=== PATIENT | male | born 1960 | race Caucasian/White ===

== ENCOUNTER 2024-05-27 03:19 | Observation (INO) | payer OTHER, SELFPAY ==
[2024-05-27] VITALS (61 sets, daily range): BP systolic 70–132; BP diastolic 43–71; PULSE 54–69; RESP 9–29; TEMP 35.9–37.1; O2SAT 98–100; BMI 24.4
--- NOTE | 2024-05-27 03:21 | DI.RAD.S_ITS ---
PROCEDURE: XR CHEST 1V INDICATIONS: Bradycardia and lightheadedness TECHNIQUE: One view of the chest was acquired. COMPARISON: None. FINDINGS: Surgical changes and devices: Prosthetic valve. Lungs and pleura: Lungs are clear. No pleural effusions or pneumothorax. Mediastinum: Mediastinal contours appear normal. Heart size is normal. Bones and chest wall: No suspicious bony lesions. Overlying soft tissues appear unremarkable. IMPRESSION: No acute cardiopulmonary abnormality is seen. Agree with preliminary report. Dictated by: Carlos Evans M.D. on 05/27/2024 at 8:35 Approved by: Carlos Evans M.D. on 05/27/2024 at 8:37
--- NOTE | 2024-05-27 03:22 | DI.CT.S_ITS ---
PROCEDURE: CT HEAD/BRAIN WO CON INDICATIONS: Syncope with head injury TECHNIQUE: Noncontrast 4.5 mm thick angled axial sections acquired from the foramen magnum to the vertex, with coronal and sagittal reformats. For radiation dose reduction, the following was used: automated exposure control, adjustment of mA and/or kV according to patient size. COMPARISON: None. FINDINGS: Image quality: Diagnostic. CSF spaces: Basal cisterns are patent. No extra-axial fluid collections. The ventricles are symmetric in size and shape. Brain: No intracranial bleeds or masses. There is cerebral volume loss for age, with resultant ventricular and sulcal prominence. There are periventricular and deep white matter chronic small vessel ischemic changes. There is intracranial internal carotid artery atherosclerosis. Skull and face: Calvarium and visualized facial bones appear intact, without suspicious lesions. Sinuses: Visualized sinuses and mastoids are clear. IMPRESSION: No evidence acute intracranial process. Comment: Final report is concordant with preliminary interpretation provided by [facility]. Dictated by: Oscar Garibay M.D. on 05/27/2024 at 7:11 Approved by: Oscar Garibay M.D. on 05/27/2024 at 7:11
--- NOTE | 2024-05-27 03:23 | ED.GENADULT ---
HPI - General Adult General Chief complaint: Syncope Stated complaint: syncope Time Seen by Provider: 05/27/24 03:20 Source: patient and EMS Mode of arrival: EMS Limitations: no limitations History of Present Illness HPI narrative: Patient is a 64-year-old male. Several years ago had an aortic valve replacement. Is not on anticoagulation. He was on hydrochlorothiazide and losartan for high blood pressure. He also takes 240 mg of verapamil on a daily basis for cluster headaches. He has been on these medications for many years. He states the verapamil was really the only thing it helps his headaches. He did drink alcohol yesterday/last evening. He got up in the middle of the night to go use the restroom and had what appeared to be a syncopal episode. He did hit his head. Potentially a brief loss of consciousness. Has a contusion to his forehead. Reports no other injuries from the event to include neck pain arm pain hip pain or leg pain. Prior to the syncopal event did not have palpitations, shortness of breath, chest pain, headache. Patient's contacted EMS. Upon their arrival they found the patient to be bradycardic into the 50s and occasionally down into the 30s. Found him to be hypotensive with a systolic blood pressure in the 50s and 60s. He received fluids prior to arrival. This did improve his blood pressure somewhat. Patient has not been altered per EMS care. Related Data Home Medications Medication Instructions Recorded Confirmed aspirin 81 mg tablet 81 mg PO DAILY 05/27/24 05/27/24 cholecalciferol (vitamin D3) 100 100 mcg PO DAILY 05/27/24 05/27/24 mcg (4,000 unit) tablet gabapentin 300 mg capsule 300 mg PO BEDTIME 05/27/24 05/27/24 hydrochlorothiazide 12.5 mg capsule 12.5 mg PO DAILY 05/27/24 05/27/24 losartan 50 mg tablet 50 mg PO BID 05/27/24 05/27/24 verapamil 240 mg 24 hr 240 mg PO DAILY 05/27/24 05/27/24 capsule,extended release Allergies Allergy/AdvReac Type Severity Reaction Status Date / Time No Known Drug Allergies Allergy Verified 05/27/24 03:30 Review of Systems Review of Systems ROS Unobtainable: All systems reviewed & are unremarkable except as noted in HPI and below Patient History Social History Smoking Status: Never smoker Exam Initial Vital Signs Initial Vital Signs: Vital Signs Blood Pressure 70/43 L 05/27/24 03:21 Const General: cooperative, comfortable and No ill appearing HENMT Head: abrasion (Middle of forehead) Face and sinus: normal facial exam Mouth: oral mucosae normal Chest Chest: No crepitus and No tenderness Resp Effort & Inspection: normal respiratory effort Auscultation: clear to auscultation bilaterally Cardio Rate: bradycardic Rhythm: regular rhythm GI Inspection: normal to inspection and non-distended Palpation: soft and No tender Back/Spine/Pelvis Cervical Spine: No cervical spinal tenderness Skin Other: Abrasion to center of forehead Neuro General: patient alert, patient awake, patient oriented x3 and moves all extremities Extrem General: normal to inspection and capillary refill normal Course Orders Ordered: ED Orders 05/27/24 03:21 XR chest 1V Stat EKG-12 Lead Stat 05/27/24 03:22 CT head/brain wo con Stat 05/27/24 03:34 Complete Blood Count AUTO DIFF Stat Comprehensive Metabolic Panel Stat Ethanol (ETOH) Stat Lipase Stat Magnesium Stat PTT Partial Thromboplastin Thomas Stat Prothrombin Time INR Stat Troponin & CK Cardiac Panel Stat Sodium Chloride (Normal Saline 0.9%) 1,000 mls @ 125 mls/hr IV CONT ADAMA Last Admin: 05/27/24 04:21 Dose: 125 mls/hr Documented By: GANGA Discontinued Medications Atropine Sulfate (Atropine 1 Mg/10 Ml Syringe) 0.5 mg IV NOW ONE Stop: 05/27/24 03:31 Last Admin: 05/27/24 03:34 Dose: 0.5 mg Documented By: GANGA Sodium Chloride (Normal Saline 0.9%) 1,000 mls @ 1,000 mls/hr IV BOLUS ONE Stop: 05/27/24 04:27 Last Infusion: 05/27/24 04:21 Dose: Infused Documented By: Admin: 05/27/24 03:37 Dose: 1,000 mls/hr Documented By: GANGA Vital Signs Vital signs: Vital Signs - 8 hr 05/27/24 03:21 05/27/24 03:23 05/27/24 03:31 Temperature 96.6 F L Pulse Rate 54 L Respiratory Rate 16 Blood Pressure 70/43 L 70/43 L 74/48 L Pulse Oximetry 100 Oxygen Delivery Method Room Air 05/27/24 03:35 05/27/24 03:39 05/27/24 03:40 Temperature Pulse Rate Respiratory Rate Blood Pressure 70/45 L 73/49 L 74/49 L Pulse Oximetry Oxygen Delivery Method 05/27/24 03:45 05/27/24 03:47 05/27/24 03:47 Temperature Pulse Rate 66 Respiratory Rate 9 L Blood Pressure 75/48 L 78/49 L Pulse Oximetry Oxygen Delivery Method 05/27/24 03:50 05/27/24 03:50 05/27/24 03:55 Temperature Pulse Rate 64 Respiratory Rate 18 Blood Pressure 80/50 L 77/49 L Pulse Oximetry 100 Oxygen Delivery Method 05/27/24 03:55 05/27/24 03:59 05/27/24 04:00 Temperature Pulse Rate 61 60 Respiratory Rate 14 21 Blood Pressure 79/50 L Pulse Oximetry 100 99 Oxygen Delivery Method Room Air 05/27/24 04:00 05/27/24 04:05 05/27/24 04:05 Temperature Pulse Rate 60 59 L Respiratory Rate 13 18 Blood Pressure 82/51 L Pulse Oximetry 100 99 Oxygen Delivery Method Room Air 05/27/24 04:10 05/27/24 04:10 05/27/24 04:15 Temperature Pulse Rate 63 Respiratory Rate 11 L Blood Pressure 84/50 L 91/50 L Pulse Oximetry 98 Oxygen Delivery Method 05/27/24 04:15 05/27/24 04:20 05/27/24 04:20 Temperature Pulse Rate 63 60 Respiratory Rate 16 17 Blood Pressure 84/53 L Pulse Oximetry 100 99 Oxygen Delivery Method 05/27/24 04:30 05/27/24 04:30 05/27/24 04:40 Temperature Pulse Rate 58 L Respiratory Rate 16 Blood Pressure 82/50 L 80/49 L Pulse Oximetry 98 Oxygen Delivery Method 05/27/24 04:40 05/27/24 04:50 05/27/24 04:50 Temperature Pulse Rate 61 60 Respiratory Rate 10 L 10 L Blood Pressure 81/49 L Pulse Oximetry 100 99 Oxygen Delivery Method Medical Decision Making Lab Data Lab results reviewed: Yes I reviewed the patient's lab results. 05/27/24 03:34 05/27/24 03:34 Labs: Lab Results 08/23/24 Range/Units 03:34 WBC 7.5 (4.5-11.0) X10^3/uL RBC 3.93 L (4.5-5.9) X10^6/uL Hgb 13.2 L (13.5-17.5) g/dL Hct 38.8 L (41-53) % MCV 98.8 (80-100) fL MCH 33.6 (26-34) PG MCHC 34.0 (30-36) % RDW 13.0 (11.6-14.8) % Plt Count 215 (150-400) X10^3/uL Neut % (Auto) 54.6 (50-75) % Lymph % (Auto) 33.1 (25-40) % Pender % (Auto) 9.4 (3-14) % Eos % (Auto) 2.3 (2-4) % Baso % (Auto) 0.6 (0-2) % Neut # (Auto) 4100 (7633-2687) /uL Lymph # (Auto) 2500 (9292-5695) /uL Pender # (Auto) 700 (0-900) /uL Eos # (Auto) 200 (0-450) /uL Baso # (Auto) 0 (0-100) /uL PT 11.5 (9.4-12.5) SECONDS INR 1.0 (0.9-1.3) APTT 28 (25.1-36.5) SECONDS Sodium 141 (137-145) mmol/L Potassium 3.8 (3.4-5.1) mmol/L Chloride 111 H (98-107) mmol/L Carbon Dioxide 19 L (22-32) mmol/L BUN 20 (9-20) mg/dL Creatinine 1.35 H (0.66-1.25) mg/dL Estimated GFR 58 L (>60) mL/min BUN/Creatinine Ratio 14.8 (6-22) Glucose 97 (80-110) mg/dL Calcium 8.3 L (8.4-10.2) mg/dL Magnesium 1.9 (1.6-2.3) mg/dL Total Bilirubin 0.6 (0.2-1.3) mg/dL AST 37 (17-59) IU/L ALT 23 (<50) IU/L Alkaline Phosphatase 58 (38-126) U/L Total Creatine Kinase 56 (55-170) U/L Troponin I < 0.012 (0.01-0.034) ng/mL Total Protein 5.8 L (6.3-8.2) g/dL Albumin 3.4 L (3.5-5.0) g/dL Globulin 2.4 (1.7-4.1) g/dL Albumin/Globulin Ratio 1.4 (1.0-2.8) Lipase 115 (23-300) U/L Ethyl Alcohol 34 H ( - 10) mg/dL Point of Care Testing Glucose POC 104 Point of care testing: Point of Care Testing Glucose POC 104 Imaging Data Chest x-ray: Radiologist's Impression: No acute cardiopulmonary abnormality is identified CT scan - head: Radiologist's Impression: No acute intracranial abnormality ECG Data Attestation: I personally reviewed and interpreted this ECG as follows: Interpretation: No prior EKG available Sinus rhythm Ventricular rate of 55 First-degree AV block [place] interval of 312 milliseconds Left axis deviation Left bundle-branch block MDM Narrative Medical decision making narrative: This is the 1st time the patient has been to this emergency department. He arrives alert and oriented however was bradycardic and hypotensive. His blood pressure does seem to be improving by fluids from EMS. He was given 0.5 mg of atropine. This did improve his heart rate into the mid 60s which is what the patient states is his baseline. His blood pressure continue to improve with this and with fluids and now has a systolic blood pressure in the mid upper 80s. Mean arterial pressure is in the low to mid 60s. Patient has a left bundle-branch block on his EKG. He states this is not new. His head CT is unremarkable. Cervical spine cleared by nexus criteria. Reports no extremity injuries on the exam. No gross deformities of his extremities. Chest x-ray is unremarkable. Electrolytes/blood counts are unremarkable. I did discuss the case with Dr. Marion on-call for Cardiology. We went over the patient's medications in his presentation. Cardiology does not feel that the patient needs emergent transfer for pacemaker placement. There was concern that potentially the patient had a syncopal episode given the amount of verapamil that he was taking that his heart rate has not had a chance to respond. Recommended admission to the hospital for observation off of verapamil. Recommended echocardiogram. I did discuss the case with Dr. Haro hospitalist on-call who will admit. Discussed the need for admission with the patient. He expressed understanding and agreement with plan. Critical Care Time Critical Care Time Critical Care Time: Yes Total Critical Care Time: 40 Attestation: The high probability of a clinically significant, sudden or life threatening deterioration of the [cardiovascular] system(s) required my full and direct attention, intervention and personal management. The aggregate critical care time was [40] minutes. This time is in addition to time spent performing reported procedures but includes the following: [x] Data Review and interpretation [x] Patient assessment and monitoring of vital signs [x] Documentation [x] Medication orders and management Discharge Plan Departure Patient Disposition: Admitted as Observation Clinical Impression: Syncope, Bradycardia, Hypotension, Forehead contusion Admit Date/Time: 05/27/24 04:50 Admit Provider: Henry Haro
--- NOTE | 2024-05-27 03:24 | EKG_ITS ---
[address] [address] [address], [place] [address] Test Date: 2024-05-27 Pat Name: Shorty Spicer Department: Room: Gender: Male [employer] Hel[employer]: : 1960 Requested By: Order Number: [id number] Reading MD: Indio Molina Measurements Intervals Christopher Rate: 55 P: -45 LA: 312 QRS: -37 QRSD: 136 T: 87 QT: 546 QTc: 522 Interpretive Statements Unusual P axis, possible ectopic atrial bradycardia Left axis deviation Left bundle branch block Electronically Signed On 05-30-2024 15:17:43 PDT by Indio Molina
[2024-05-27] MEDS: ATROPINE 1 MG/10 ML SYRINGE 0.5 MG IV (03:34)
[2024-05-27] MEDS: SODIUM CHLORIDE 0.9% 1,000 ML 1000 ML IV (03:37)
[2024-05-27 03:45] LABS: Add Manual Diff / Slide Review NO; Basophils Absolute Auto 0 /uL (0-100); Basophils Percent Auto 0.6 % (0-2); Eosinophils Absolute Auto 200 /uL (0-450); Eosinophils Percent Auto 2.3 % (2-4); Hematocrit 38.8 % (41-53); Hemoglobin 13.2 g/dL (13.5-17.5); Lymphocytes Absolute Auto 2500 /uL (1100-4500); Lymphocytes Percent Auto 33.1 % (25-40); Mean Corpuscular Hemoglobin 33.6 PG (26-34); Mean Corpuscular Volume 98.8 fL (80-100); Monocytes Absolute Auto 700 /uL (0-900); Monocytes Percent Auto 9.4 % (3-14); Neutrophils Absolute Auto 4100 /uL (1500-7000); Neutrophils Percent Auto 54.6 % (50-75); Platelet Count 215 X10^3/uL (150-400); Red Blood Cell Count 3.93 X10^6/uL (4.5-5.9); White Blood Cell Count 7.5 X10^3/uL (4.5-11.0)
[2024-05-27 03:47] LABS: Prothrombin Time 11.5 SECONDS (9.4-12.5)
[2024-05-27 03:50] LABS: PTT Partial Thromboplastin Tim 28 SECONDS (25.1-36.5)
[2024-05-27 03:53] LABS: Alanine Aminotransferase 23 IU/L (<50); Albumin 3.4 g/dL (3.5-5.0); Albumin Globulin Ratio 1.4 (1.0-2.8); Alkaline Phosphatase 58 U/L (38-126); Aspartate Aminotransferase 37 IU/L (17-59); BUN Creatinine Ratio 14.8 (6-22); Bilirubin Total 0.6 mg/dL (0.2-1.3); Blood Urea Nitrogen 20 mg/dL (9-20); Calcium 8.3 mg/dL (8.4-10.2); Carbon Dioxide 19 mmol/L (22-32); Chloride 111 mmol/L (98-107); Creatine Kinase 56 U/L (55-170); Estimated Glomerular Filt Rate 58 mL/min (>60); Ethanol (ETOH) 34 mg/dL; Globulin 2.4 g/dL (1.7-4.1); Glucose 97 mg/dL (80-110); Lipase 115 U/L (23-300); Magnesium 1.9 mg/dL (1.6-2.3); Potassium 3.8 mmol/L (3.4-5.1); Sodium 141 mmol/L (137-145); Total Protein 5.8 g/dL (6.3-8.2)
[2024-05-27 03:54] LABS: HEMOLYSIS 87 (0-50)
[2024-05-27 04:04] LABS: Troponin I < 0.012 ng/mL (0.01-0.034)
[2024-05-27] MEDS: SODIUM CHLORIDE 0.9% 1,000 ML 125 ML IV (04:21)
--- NOTE | 2024-05-27 06:02 | DI.ECHO.S_ITS ---
[facility] : : [id number] : [address] : : [id number] : : Phone: [phone] Echocardiogram Report + + :Name: SANAZ HO Study Date: 05/27/2024 Height: 69 in : :[facility] ReadingLocation: Weight: 165 lb : : Gender: Male BSA: 1.9 m2 : :: 1960 Age: 64 yrs BP: 101/55 mmHg: :Reason For Study: SYNCOPE : :Ordering Physician: JAYLEN, : :LEYDI Ross MD Performed By: Marion Hammonds : :Referring: LEYDI YORK MD : + + Interpretation Summary The ejection fraction is estimated to be 60-65%. There is mild mitral regurgitation. There is mild tricuspid regurgitation. The right ventricular systolic pressure is estimated to be at least 30 mmHg based on an estimated right atrial pressure of 3 mm Hg. Procedure: A two-dimensional transthoracic echocardiogram with color flow and Doppler was performed. The study quality was technically adequate. There is no prior echocardiogram noted for this patient. The patient was in sinus bradycardia with heart rates between 56-61 bpm during the exam. Left Ventricle: The left ventricle is normal in size and wall thickness. The ejection fraction is estimated to be 60-65%. Left ventricular wall motion is normal. Right Ventricle: The right ventricle is normal in size and function. Atria: The left atrial size is normal. Right atrial size is normal. There is no Doppler evidence for an interatrial shunt. Mitral Valve: The mitral valve leaflets appear mildly thickened, but open well. There is mild mitral regurgitation. Aortic Valve: There is a bioprosthetic aortic valve. There is no aortic valve stenosis. The peak aortic velocity is 1.72 m/sec. The aortic valve mean gradient is 6.6 mmHg. No aortic regurgitation is present. Tricuspid Valve: The tricuspid valve is normal in structure and function. There is mild tricuspid regurgitation. The right ventricular systolic pressure is estimated to be at least 30 mmHg based on an estimated right atrial pressure of 3 mm Hg. Pulmonic Valve: The pulmonic valve is not well seen, but is grossly normal. There is no pulmonic valvular regurgitation. Great Vessels: The aortic root is normal size. The dimensions of the ascending aorta are normal. The IVC is of normal diameter and collapses greater than 50% with a sniff. This suggests a low right atrial pressure of 3 mm Hg. Pericardium/ Pleura There is no pericardial effusion. There is no pleural effusion. MMode/2D Measurements & Calculations LVIDd: 4.8 cm LVOT diam: 2.0 cm LVIDs: 3.1 cm Ao root diam: 3.0 cm FS: 35.1 % asc Aorta Diam: 3.3 cm IVSd: 0.65 cm Ao Arch Diam (Prox Trans): 2.3 cm LVPWd: 0.68 cm LV elizabeth. diameter/BSA (cm/m^2): 2.5 LV sys. diameter/BSA (cm/m^2): 1.6 LA A2 area: 16.3 cm2 RA long axis: 4.6 cm LA A4 area: 13.0 cm2 RA area: 14.6 cm2 LA length (vol): 4.3 cm RA vol: 39.1 ml LA vol: 41.6 ml RA : 20.5 ml/m2 LA vol index: 21.8 ml/m2 IVC diam: 2.0 cm RVD1 (basal): 3.7 cm RVD2 (mid): 2.5 cm TAPSE: 2.1 cm Doppler Measurements & Calculations Ao V2 max: 172.4 cm/sec LVOT Max Ruben: 93.3 cm/sec Ao V2 mean: 123.3 cm/sec LV V1 max P.5 mmHg Ao max P.9 mmHg LV V1 VTI: 21.5 cm Ao mean P.6 mmHg RUBY(I,D): 1.7 cm2 Ao V2 VTI: 39.4 cm RUBY(V,D): 1.6 cm2 sev ratio: 0.55 RUBY indexed to BSA (cm^2/m^2): 0.87 MV E max ruben: 120.4 cm/sec TR max ruben: 257.7 cm/sec MV A max ruben: 68.6 cm/sec TR max P.6 mmHg MV E/A: 1.8 PA V2 max: 72.6 cm/sec Med Peak E' Ruben: 6.9 cm/sec PA V2 mean: 55.0 cm/sec E/E' med: 17.5 PA mean P.3 mmHg Lat Peak E' Ruben: 7.6 cm/sec PA pr(Accel): 36.2 mmHg E/E' lat: 15.8 E/e' average: 16.6 MV dec time: 0.19 sec SV(LVOT): 65.1 ml Reading Physician:10:05 AM
--- NOTE | 2024-05-27 06:10 | P.HP_ITS ---
History of Present Illness History of Present Illness Date Patient Seen: 05/27/24 Time Patient Seen: 06:05 Chief complaint: syncope Narrative: 64 years old male with a past medical history of hypertension, aortic valve replacement on aspirin was brought to the emergency room status post syncopal event. Apparently he got up to go to the restroom when he had a syncopal event lasting about 2 minutes. No prodromal symptoms. No seizure like symptoms. No bowel movement or bladder incontinence. Denied any dizziness or chest pain prior to the event. No blurred vision diplopia or headache now. Denies any nausea vomiting or abdominal pain. Did have some alcohol last evening. He does take losartan and hydrochlorothiazide in the mornings and verapamil 240 mg at night. Squad on arrival noted the patient's heart rate to be in the 30s and subsequently received IV fluids/atropine and brought to the emergency room. In the ED systolic was in the 70s needing further IV fluid boluses. Blood pressures have since improved to the systolic in the 100s. Further labs include CBC that showed a WBC of 7.5 with a hemoglobin of 13.2. Sodium 141 with a potassium of 3.8, BUN of 20 creatinine of 1.35. Ethyl alcohol is 34. AST/ALT is 27/33. CT head shows no acute process. Chest x-ray shows no acute process. EKG shows left bundle branch block. Is not new. Subsequently emergency room provider discussed with the polymerization oven operator and it was felt, patient does not need any urgent cardiac intervention. Advised to hold off verapamil and observe in the hospital. Patient was admitted for further evaluation [facility] Social History Smoking Status: Never smoker Meds Home Medications and Allergies Home Medications Medication Instructions Recorded Confirmed Type aspirin 81 mg tablet 81 mg PO DAILY 05/27/24 05/27/24 History cholecalciferol (vitamin D3) 100 100 mcg PO DAILY 05/27/24 05/27/24 History mcg (4,000 unit) tablet gabapentin 300 mg capsule 300 mg PO BEDTIME 05/27/24 05/27/24 History hydrochlorothiazide 12.5 mg capsule 12.5 mg PO DAILY 05/27/24 05/27/24 History losartan 50 mg tablet 50 mg PO BID 05/27/24 05/27/24 History verapamil 240 mg 24 hr 240 mg PO DAILY 05/27/24 05/27/24 History capsule,extended release Allergies Allergy/AdvReac Type Severity Reaction Status Date / Time No Known Drug Allergies Allergy Verified 05/27/24 03:30 Review of Systems Review of Systems Narrative: A 12 point review of system is negative unless otherwise stated in the history of present illness Exam Vital Signs (past 8 hours): - 05/27/24 03:21 05/27/24 03:23 05/27/24 03:31 Temperature 96.6 F L Pulse Rate 54 L Respiratory Rate 16 Blood Pressure 70/43 L 70/43 L 74/48 L Pulse Oximetry 100 Oxygen Delivery Method Room Air Oxygen Flow Rate 05/27/24 03:35 05/27/24 03:39 05/27/24 03:40 Temperature Pulse Rate Respiratory Rate Blood Pressure 70/45 L 73/49 L 74/49 L Pulse Oximetry Oxygen Delivery Method Oxygen Flow Rate 05/27/24 03:45 05/27/24 03:47 05/27/24 03:47 Temperature Pulse Rate 66 Respiratory Rate 9 L Blood Pressure 75/48 L 78/49 L Pulse Oximetry Oxygen Delivery Method Oxygen Flow Rate 05/27/24 03:50 05/27/24 03:50 05/27/24 03:55 Temperature Pulse Rate 64 Respiratory Rate 18 Blood Pressure 80/50 L 77/49 L Pulse Oximetry 100 Oxygen Delivery Method Oxygen Flow Rate 05/27/24 03:55 05/27/24 03:59 05/27/24 04:00 Temperature Pulse Rate 61 60 Respiratory Rate 14 21 Blood Pressure 79/50 L Pulse Oximetry 100 99 Oxygen Delivery Method Room Air Oxygen Flow Rate 05/27/24 04:00 05/27/24 04:05 05/27/24 04:05 Temperature Pulse Rate 60 59 L Respiratory Rate 13 18 Blood Pressure 82/51 L Pulse Oximetry 100 99 Oxygen Delivery Method Room Air Oxygen Flow Rate 05/27/24 04:10 05/27/24 04:10 05/27/24 04:15 Temperature Pulse Rate 63 Respiratory Rate 11 L Blood Pressure 84/50 L 91/50 L Pulse Oximetry 98 Oxygen Delivery Method Oxygen Flow Rate 05/27/24 04:15 05/27/24 04:20 05/27/24 04:20 Temperature Pulse Rate 63 60 Respiratory Rate 16 17 Blood Pressure 84/53 L Pulse Oximetry 100 99 Oxygen Delivery Method Oxygen Flow Rate 05/27/24 04:30 05/27/24 04:30 05/27/24 04:40 Temperature Pulse Rate 58 L Respiratory Rate 16 Blood Pressure 82/50 L 80/49 L Pulse Oximetry 98 Oxygen Delivery Method Oxygen Flow Rate 05/27/24 04:40 05/27/24 04:50 05/27/24 04:50 Temperature Pulse Rate 61 60 Respiratory Rate 10 L 10 L Blood Pressure 81/49 L Pulse Oximetry 100 99 Oxygen Delivery Method Oxygen Flow Rate 05/27/24 05:00 05/27/24 05:00 05/27/24 05:10 Temperature Pulse Rate 62 Respiratory Rate 17 Blood Pressure 87/52 L 86/53 L Pulse Oximetry 100 Oxygen Delivery Method Oxygen Flow Rate 05/27/24 05:10 05/27/24 05:18 05/27/24 05:18 Temperature Pulse Rate 59 L 63 Respiratory Rate 12 15 Blood Pressure 87/54 L Pulse Oximetry 100 99 Oxygen Delivery Method Room Air Oxygen Flow Rate 05/27/24 05:19 05/27/24 05:19 05/27/24 05:36 Temperature 97.4 F L Pulse Rate 60 63 Respiratory Rate 11 L 18 Blood Pressure 88/52 L 95/54 L Pulse Oximetry 100 98 Oxygen Delivery Method Oxygen Flow Rate 0 Oxygen Delivery Method Room Air Oxygen Flow Rate 0 Narrative Exam Narrative: Patient is awake alert and does not appear to be in acute distress. Air entry equal bilaterally no wheezes no crackles S1-S2 heard no S3 no S4 Objective Labs 05/27/24 03:34 05/27/24 03:34 Labs: Laboratory Results - last 24 hr 05/27/24 03:34 WBC 7.5 RBC 3.93 L Hgb 13.2 L Hct 38.8 L MCV 98.8 MCH 33.6 MCHC 34.0 RDW 13.0 Plt Count 215 Neut % (Auto) 54.6 Lymph % (Auto) 33.1 [place] % (Auto) 9.4 Eos % (Auto) 2.3 Baso % (Auto) 0.6 Neut # (Auto) 4100 Lymph # (Auto) 2500 [place] # (Auto) 700 Eos # (Auto) 200 Baso # (Auto) 0 PT 11.5 INR 1.0 APTT 28 Sodium 141 Potassium 3.8 Chloride 111 H Carbon Dioxide 19 L BUN 20 Creatinine 1.35 H Estimated GFR 58 L BUN/Creatinine Ratio 14.8 Glucose 97 Calcium 8.3 L Magnesium 1.9 Total Bilirubin 0.6 AST 37 ALT 23 Alkaline Phosphatase 58 Total Creatine Kinase 56 Troponin I < 0.012 Total Protein 5.8 L Albumin 3.4 L Globulin 2.4 Albumin/Globulin Ratio 1.4 Lipase 115 Ethyl Alcohol 34 H Assessment & Plan Assessment & Plan narrative: 64 years old male with a past medical history of hypertension, aortic valve replacement on aspirin was brought to the emergency room status post syncopal event. Apparently he got up to go to the restroom when he had a syncopal event lasting about 2 minutes. No prodromal symptoms. No seizure like symptoms. No bowel movement or bladder incontinence. Denied any dizziness or chest pain prior to the event. No blurred vision diplopia or headache now. Denies any nausea vomiting or abdominal pain. Did have some alcohol last evening. He does take losartan and hydrochlorothiazide in the mornings and verapamil 240 mg at night. Squad on arrival noted the patient's heart rate to be in the 30s and subsequently received IV fluids/atropine and brought to the emergency room. In the ED systolic was in the 70s needing further IV fluid boluses. Blood pressures have since improved to the systolic in the 100s. Further labs include CBC that showed a WBC of 7.5 with a hemoglobin of 13.2. Sodium 141 with a potassium of 3.8, BUN of 20 creatinine of 1.35. Ethyl alcohol is 34. AST/ALT is 27/33. CT head shows no acute process. Chest x-ray shows no acute process. EKG shows left bundle branch block. Is not new. Subsequently emergency room provider discussed with the polymerization oven operator and it was felt, patient does not need any urgent cardiac intervention. Advised to hold off verapamil and observe in the hospital. Patient was admitted for further evaluation Syncope. Hypotensive and bradycardic. Appears cardiac. Reports patient had a similar syncopal event in 2017 prior to his aortic valve replacement. At this time suspect more of a medication induced at this time probably related to blood pressure medications. Patient reports his average systolic is in the 110s at home. With the fluctuating p.o. intake/alcohol use, may have further complicated the picture. Monitoring telemetry for now and hold all the home blood s pressure medications including verapamil/losartan/hydrochlorothiazide. Follow-up with an echocardiogram. Initiate IV fluids and trend electrolytes History of aortic valve replacement. Denies any chest pain or cardiac symptoms prior to this episode. Will follow-up with an echocardiogram. Currently on aspirin. DVT prophylaxis will be Lovenox GI prophylaxis will be Protonix Patient will be admitted under observation status Patient was evaluated with a video communication device. [facility] Time-Based Coding :: [TOTAL MINUTES] spent with patient and on the chart (including review of chart, obtaining history, exam, reviewing outside data, placing orders, documenting exam and treatment plan, and counseling patient) on [DATE].
[2024-05-27] MEDS: PANTOPRAZOLE DR 40 MG TABLET PO (07:51)
[2024-05-27] MEDS: ASPIRIN EC 81 MG TABLET PO (09:20)
[2024-05-27] MEDS: ENOXAPARIN 40 MG/0.4 ML SYRINGE SUBCUT (09:20)
[2024-05-27] MEDS: CHOLECALCIFEROL (VITAMIN D3) 1,000 UNIT TABLET 4000 UNIT PO (09:20)
[2024-05-27 12:26] LABS: MRSA (Nasal) PCR NOT DETECTED (Not Detect)
--- NOTE | 2024-05-27 12:27 | CM.DANOTE ---
DCP Assessment Note: Pt is a 64yo male, resident of [place], is admitted for a syncopal episode. Pt lives in a house with his , Lydia. Pt's Primary Care Provider is Dr. Madonna Fernandez (has not officially established yet, first appointment on 06/24) and insurance is [employer]. Reviewed chart and team rounds for pt's medical status and initial discharge needs. Per hospitalist, pt is anticipated to discharge tomorrow to allow for one more night of observation. DCP met w/patient at bedside; introduced self and role. Patient was found in chair, alert and oriented, cooperative with assessment. Pt confirmed living situation and good support in spouse and adult children who also live in [place]. Pt expressed preference in returning home when medically cleared. Declined this DCP's offer for home health referral or other supports in the community. Plan: Anticipating patient to discharge home with spouse to transport and assist. CM team will follow closely for coordination of discharge plans. KENZIE Harrison Discharge Planning/Care Management CM Discharge Assessment Start: 05/27/24 12:24 Freq: Status: Active Protocol: Document 05/27/24 12:24 MW (Rec: 05/27/24 12:27 [id number]) Discharge Planning Assessment Assigned Automatic Casting Machine Operator NAKIA Szymanski DPOA/Assigned Designee Name Lydia Santoro, Spouse Contact Information [phone] Advance Directives? Yes Advance Directives on File No History Provided By Patient Expected Length of Stay 2 Has Patient been admitted in last 30 No days? Prior Living Arrangements House Comment Patient recently moved to [place] from [place], [place] with spouse. Household Members spouse Comment Adult children also live in [place] and can assist. Type of transporation used prior to Drives own vehicle admit Willing to Return to Facility? No Independent with ADL's Yes Is patient alert and oriented? Yes Caregiver for Another No Comment Patient declined home health referral at this time. Barriers to Discharge No Discharge Plan Home Referrals Initiated None needed Whiteboard Updated in Patient Room with Yes name and ext. # of Automatic Casting Machine Operator Comment [phone] Please Provide Date Initial DC 05/27/24 Assessment Was Performed Next Review Type Continued Stay Review
--- NOTE | 2024-05-27 13:14 | PM.HP.1 ---
History of Present Illness History of Present Illness Date Patient Seen: 05/27/24 Time Patient Seen: 08:00 Date of Onset of Symptoms: 05/27/24 Chief complaint: syncope Narrative: 64-year-old man planning to establish care with Dr. Moon Fernandez in July, status post bovine aortic valve replacement several years ago, developing a left bundle branch block following surgery, on hydrochlorothiazide and losartan for high blood pressure, gabapentin for upper extremity restless limb syndrome, as well as verapamil for over 10 years for cluster headaches, was packing boxes and moving out of their apartment yesterday and planning to move into their new home today, very busy and drinking little, and became admittedly dehydrated. He admits to 1 alcoholic beverage yesterday as well. He got up in the night to use the restroom and his describes hearing a loud thud sound and found him unconscious on the floor, unresponsive for about 2 minutes. He had struck his head and had a forehead contusion. He reports he had been feeling well when he went to bed without chest pain, shortness of breath, palpitations, lightheadedness, or recent infectious symptoms or illnesses. His called paramedics and they found him bradycardic into the 50s and occasionally the 30s, hypotensive with systolic blood pressures in the 50s and 60s. He was given IV fluids and brought to the emergency department where his blood pressure was 70/43 on arrival with a pulse of 54, with blood pressure improving with IV hydrations into the 80s to 90s over the next few hours, and 112/55 on arrival to the medical floor. He is alert, pleasant and seen with his at bedside this morning stating he feels much better. He has not had a similar event previously. [facility] Social History household members: spouse Smoking Status: Never smoker Meds Home Medications and Allergies Home Medications Medication Instructions Recorded Confirmed Type aspirin 81 mg tablet 81 mg PO DAILY 05/27/24 05/27/24 History cholecalciferol (vitamin D3) 100 100 mcg PO DAILY 05/27/24 05/27/24 History mcg (4,000 unit) tablet gabapentin 300 mg capsule 300 mg PO BEDTIME 05/27/24 05/27/24 History hydrochlorothiazide 12.5 mg capsule 12.5 mg PO DAILY 05/27/24 05/27/24 History losartan 50 mg tablet 50 mg PO BID 05/27/24 05/27/24 History verapamil 240 mg 24 hr 240 mg PO DAILY 05/27/24 05/27/24 History capsule,extended release Allergies Allergy/AdvReac Type Severity Reaction Status Date / Time chlorhexidine Allergy Redness of Verified 05/27/24 13:06 [From Hibiclens] Skin morphine AdvReac Difficulty Verified 05/27/24 13:06 Breathing Review of Systems Review of Systems ROS: Yes All systems reviewed with the patient and are negative except as otherwise documented Exam Vital Signs (past 8 hours): - 05/27/24 05:18 05/27/24 05:18 05/27/24 05:19 Temperature Pulse Rate 63 60 Respiratory Rate 15 11 L Blood Pressure 87/54 L Pulse Oximetry 99 100 Oxygen Delivery Method Oxygen Flow Rate 05/27/24 05:19 05/27/24 05:23 05/27/24 05:36 Temperature 97.2 F L 97.4 F L Pulse Rate 63 63 Respiratory Rate 18 18 Blood Pressure 88/52 L 95/52 L 95/54 L Pulse Oximetry 98 98 Oxygen Delivery Method Oxygen Flow Rate 0 0 05/27/24 07:00 05/27/24 09:22 05/27/24 09:30 Temperature Pulse Rate 69 62 Respiratory Rate 24 20 Blood Pressure 112/55 L Pulse Oximetry Oxygen Delivery Method Room Air Oxygen Flow Rate 05/27/24 09:40 05/27/24 10:00 05/27/24 10:30 Temperature 97.8 F Pulse Rate 58 L 63 Respiratory Rate 10 L 14 Blood Pressure Pulse Oximetry Oxygen Delivery Method Oxygen Flow Rate 05/27/24 11:00 05/27/24 11:30 05/27/24 12:00 Temperature Pulse Rate 61 66 59 L Respiratory Rate 12 25 H 16 Blood Pressure 105/56 L Pulse Oximetry Oxygen Delivery Method Oxygen Flow Rate 05/27/24 12:16 05/27/24 12:16 05/27/24 12:30 Temperature Pulse Rate 59 L 67 Respiratory Rate 20 17 Blood Pressure 105/56 L Pulse Oximetry Oxygen Delivery Method Oxygen Flow Rate 05/27/24 12:45 Temperature Pulse Rate Respiratory Rate Blood Pressure Pulse Oximetry 98 Oxygen Delivery Method Oxygen Flow Rate 0 Oxygen Delivery Method Room Air Oxygen Flow Rate 0 Narrative Exam Narrative: GENERAL: This is a well-nourished, well-developed patient, in no apparent distress. HEAD: Upper forehead 3cm abrasion and ecchymosis at the hairline. EYES: Pupils equal round and reactive. Extraocular motions intact. No scleral icterus. No injection or drainage. ENT: Mucous membranes pink and moist. NECK: Trachea midline. No JVD, bruits or lymphadenopathy. Supple, nontender, no meningeal signs. CARDIOVASCULAR: Bradycardia rhythm, normal S1 and S2, without murmurs, gallops, or rubs. RESPIRATORY: Clear to auscultation. GASTROINTESTINAL: Abdomen soft, non-tender, nondistended. EXTREMITIES: No clubbing, cyanosis, or edema. BACK: Nontender without deformity or crepitance. No flank tenderness. NEUROLOGIC: Alert, oriented, speech fluent, full upper and lower motor strength, no focal deficits evident. DERMATOLOGIC: No rashes or skin lesions. Objective ECG Impression: Sinus bradycardia at 55 beats per minute, 1st degree AV block with as needed oral 312 milliseconds, left bundle branch block Imaging Multiple:: Radiologist's impression: Chest x-ray: No acute cardiopulmonary abnormality is seen. Head CT: No evidence acute intracranial process. Echocardiogram: The ejection fraction is estimated to be 60-65%. There is mild mitral regurgitation. There is mild tricuspid regurgitation. The right ventricular systolic pressure is estimated to be at least 30 mmHg based on an estimated right atrial pressure of 3 mm Hg. There is a bioprosthetic aortic valve. There is probable normal prosthetic aortic valve function. Labs 05/27/24 03:34 05/27/24 03:34 Labs: Laboratory Results - last 24 hr 05/27/24 05/27/24 03:34 06:40 WBC 7.5 RBC 3.93 L Hgb 13.2 L Hct 38.8 L MCV 98.8 MCH 33.6 MCHC 34.0 RDW 13.0 Plt Count 215 Neut % (Auto) 54.6 Lymph % (Auto) 33.1 [place] % (Auto) 9.4 Eos % (Auto) 2.3 Baso % (Auto) 0.6 Neut # (Auto) 4100 Lymph # (Auto) 2500 [place] # (Auto) 700 Eos # (Auto) 200 Baso # (Auto) 0 PT 11.5 INR 1.0 APTT 28 Sodium 141 Potassium 3.8 Chloride 111 H Carbon Dioxide 19 L BUN 20 Creatinine 1.35 H Estimated GFR 58 L BUN/Creatinine Ratio 14.8 Glucose 97 Calcium 8.3 L Magnesium 1.9 Total Bilirubin 0.6 AST 37 ALT 23 Alkaline Phosphatase 58 Total Creatine Kinase 56 Troponin I < 0.012 Total Protein 5.8 L Albumin 3.4 L Globulin 2.4 Albumin/Globulin Ratio 1.4 Lipase 115 Nasal Screen MRSA (PCR) Not detected Ethyl Alcohol 34 H Assessment & Plan Assessment & Plan narrative: 1. Syncope with hypotension and bradycardia, and mild acute kidney injury. Likely due to poor oral intake yesterday and affective the usual antihypertensive therapy and verapamil, as well as mild dehydration from an alcoholic beverage. Admit to observation, hydrate intravenously, hold verapamil, and monitor on telemetry to rule out higher grade AV block. 2. Chronic left bundle branch block, 1st degree AV block. Monitor on telemetry. Repeat EKG offer apple. 3. Acute kidney injury due to dehydration. Monitor with hydration. 4. Cluster headache syndrome. Monitor off verapamil. He should avoid this in the future given risk of worsening AV block in the future. He has been since started on gabapentin, which may provide sufficient cluster headache prophylaxis without the need for other agents in the future. 5. Hypertension. Hold antihypertensive therapy at this point. 6. Restless arms syndrome. Continue routine gabapentin. 7. Code status: Full code. Quality MIPS - Admit I confirm the patient?s Advance Care Plan is present, Code status is documented, Surrogate decision maker is in patient?s record [If Yes, STOP here]: Yes MIPS - Meds 'Current medications' to include all prescriptions, [id number] products, herbals, cannabis/cannabidiol products, and vitamin/mineral/dietary (nutritional) supplements. I have utilized all available resources to obtain, update, or review the patient?s current medications. [If Yes, STOP here]: Yes PROFEE Charge Codes Initial inpatient/observation care: [id number]
[2024-05-27] MEDS: SODIUM CHLORIDE 0.9% 1,000 ML 100 ML IV ×2 (13:54→23:31)
[2024-05-28] VITALS (22 sets, daily range): BP systolic 118–126; BP diastolic 58–69; PULSE 59–95; RESP 9–25; TEMP 36.6–36.9; O2SAT 98–100
[2024-05-28] MEDS: PANTOPRAZOLE DR 40 MG TABLET PO (06:03)
[2024-05-28] MEDS: ENOXAPARIN 40 MG/0.4 ML SYRINGE SUBCUT (08:17)
[2024-05-28] MEDS: CHOLECALCIFEROL (VITAMIN D3) 1,000 UNIT TABLET 4000 UNIT PO (08:17)
[2024-05-28] MEDS: ASPIRIN EC 81 MG TABLET PO (08:17)
--- NOTE | 2024-05-28 08:31 | P.DS_ITS ---
History of Present Illness History of Present Illness Date Patient Seen: 05/28/24 Time Patient Seen: 07:45 Date of Onset of Symptoms: 05/27/24 Chief complaint: syncope Narrative: 64-year-old man planning to establish care with Dr. Moon Fernandez in June, status post bovine aortic valve replacement several years ago, developing a left bundle branch block following surgery, on hydrochlorothiazide and losartan for high blood pressure, gabapentin for upper extremity restless limb syndrome, as well as verapamil for over 10 years for cluster headaches, was packing boxes and moving out of their apartment yesterday and planning to move into their new home today, very busy and drinking little, and became admittedly dehydrated. He admits to 1 alcoholic beverage yesterday as well. He got up in the night to use the restroom and his describes hearing a loud thud sound and found him unconscious on the floor, unresponsive for about 2 minutes. He had struck his head and had a forehead contusion. He reports he had been feeling well when he went to bed without chest pain, shortness of breath, palpitations, lightheadedness, or recent infectious symptoms or illnesses. His called paramedics and they found him bradycardic into the 50s and occasionally the 30s, hypotensive with systolic blood pressures in the 50s and 60s. He was given IV fluids and brought to the emergency department where his blood pressure was 70/43 on arrival with a pulse of 54, with blood pressure improving with IV hydrations into the 80s to 90s over the next few hours, and 112/55 on arrival to the medical floor. He is alert, pleasant and seen with his at bedside this morning stating he feels much better. He has not had a similar event previously. Discharge Providers Provider Date of admission: 05/27/24 04:50 Discharge Date: 05/28/24 Discharge provider: Elan Sauceda MD Summary Hospital Course Discharge Diagnosis: 1. Syncope with hypotension and bradycardia, and mild acute kidney injury. 2. Chronic left bundle branch block, 1st degree AV block. 3. Acute kidney injury due to dehydration. 4. Cluster headache syndrome. 5. Hypertension. 6. Restless arms syndrome. 7. Forehead abrasion, with closed head injury, no evidence of concussion during hospitalization. 8. S/p bovine aortic valve replacement. Hospital Course: The patient was admitted, hydrated intravenously, and verapamil held. He was initially hypotensive but blood pressure improved to normal. Heart rates remained in the 50s to 60s on telemetry. P are interval improved to normal, and he is the patient was feeling significantly better. It was recommended to remain off a rapid well at this point given bifascicular block. He was feeling well in interested in discharge home with outpatient follow-up. It is hoped that cluster headaches may be managed on gabapentin at this point. The dose was not increased changed as he tends to get excessive somnolence. He is advised to resume his losartan and hydrochlorothiazide tomorrow. No other issues arose. The patient acknowledged understanding, agreement and appreciation of this plan of care, and agreed to call back with any questions or concerns. Status at Discharge Cognitive/behavioral status at discharge: oriented Functional status at discharge: independent ambulation Overall status at discharge: patient is back to baseline Time Spent with Patient Time spent: Less than 30 minutes Exam Vital Signs (past 8 hours): - 05/28/24 01:00 05/28/24 01:30 05/28/24 01:59 Temperature Pulse Rate 61 60 Respiratory Rate 9 L 10 L Blood Pressure 121/58 L Pulse Oximetry Oxygen Delivery Method Oxygen Flow Rate 05/28/24 01:59 05/28/24 02:00 05/28/24 02:00 Temperature 97.8 F Pulse Rate 64 65 95 H Respiratory Rate 13 18 25 H Blood Pressure 121/58 L Pulse Oximetry 98 99 Oxygen Delivery Method Oxygen Flow Rate 0 05/28/24 02:30 05/28/24 03:00 05/28/24 03:30 Temperature Pulse Rate 59 L 59 L 59 L Respiratory Rate 12 11 L 11 L Blood Pressure Pulse Oximetry Oxygen Delivery Method Oxygen Flow Rate 05/28/24 04:00 05/28/24 04:30 05/28/24 05:00 Temperature Pulse Rate 66 59 L 60 Respiratory Rate 11 L 13 10 L Blood Pressure Pulse Oximetry Oxygen Delivery Method Oxygen Flow Rate 05/28/24 05:30 05/28/24 05:51 05/28/24 05:51 Temperature Pulse Rate 60 69 Respiratory Rate 14 12 Blood Pressure 118/69 Pulse Oximetry 99 Oxygen Delivery Method Oxygen Flow Rate 05/28/24 05:59 05/28/24 06:00 05/28/24 06:30 Temperature 98.0 F Pulse Rate 64 71 63 Respiratory Rate 13 11 L 9 L Blood Pressure 118/69 Pulse Oximetry 98 Oxygen Delivery Method Oxygen Flow Rate 0 05/28/24 07:00 05/28/24 07:00 05/28/24 07:30 Temperature Pulse Rate 63 62 Respiratory Rate 10 L 21 Blood Pressure Pulse Oximetry Oxygen Delivery Method Room Air Oxygen Flow Rate 05/28/24 08:00 05/28/24 08:07 05/28/24 08:07 Temperature Pulse Rate 72 67 Respiratory Rate 9 L 16 Blood Pressure 126/64 Pulse Oximetry 100 Oxygen Delivery Method Oxygen Flow Rate 05/28/24 08:20 Temperature 98.4 F Pulse Rate Respiratory Rate Blood Pressure Pulse Oximetry Oxygen Delivery Method Oxygen Flow Rate Oxygen Delivery Method Room Air Oxygen Flow Rate 0 Narrative Exam Narrative: GENERAL: This is a well-nourished, well-developed patient, in no apparent distress. HEAD: Upper forehead 3cm abrasion and ecchymosis at the hairline. EYES: Pupils equal round and reactive. Extraocular motions intact. No scleral icterus. No injection or drainage. ENT: Mucous membranes pink and moist. NECK: Supple, nontender, no meningeal signs. CARDIOVASCULAR: Regular rate and rhythm, normal S1 and S2, without murmurs, gallops, or rubs. RESPIRATORY: Clear to auscultation. GASTROINTESTINAL: Abdomen soft, non-tender, nondistended. EXTREMITIES: No clubbing, cyanosis, or edema. NEUROLOGIC: Alert, oriented, speech fluent, full upper and lower motor strength, no focal deficits evident. DERMATOLOGIC: No rashes or skin lesions. Objective Labs 05/27/24 03:34 05/27/24 03:34 Labs: Laboratory Results - last 24 hr 05/27/24 06:40 Nasal Screen MRSA (PCR) Not detected ON LICENSE OF [facility] Social History household members: spouse Smoking Status: Never smoker Discharge Plan Discharge Plan Patient Disposition: Home Provider Discharge Comment: Hold losartan and HCTZ until tomorrow; followup with Dr. Fernandez 1 week Discharge orders & Medications Prescriptions: Continued losartan 50 mg Tablet 50 mg PO BID hydrochlorothiazide 12.5 mg Capsule 12.5 mg PO DAILY gabapentin 300 mg Capsule 300 mg PO BEDTIME aspirin 81 mg Tablet 81 mg PO DAILY cholecalciferol (vitamin D3) 100 mcg (4,000 unit) Tablet 100 mcg PO DAILY Discontinued verapamil 240 mg Capsule,Ext Rel. Pellets 24 Hr 240 mg PO DAILY Visit Report/Discharge Packet Stand Alone Forms: Patient Portal/API, Stroke Signs & Symptoms Discharge Data Attending Provider: Henry Haro Admit Date/Time: 05/27/24 04:50
--- NOTE | 2024-05-28 11:09 | CM.DPC ---
DCP Discharge Home Per MD, pt is medically stable to d/c home today with no needs and no identified barriers to discharge. Per RN, discharge instructions provided to patient and spouse and spouse transporting pt home today before lunch and no concerns noted. SW observed spouse and pt being taken to their POV around 1045. NAKIA Benson
== END 2024-05-28 10:53 | disposition home or self-care (01) ==
LOC: ED 04:51 → AC 04:51 → ICU 05:05
PROVIDERS: Internal Medicine; Admitting Provider Internal Medicine; Emergency Provider Emergency Medicine; Visit Provider Internal Medicine
DX: R55 Syncope and collapse (principal); I95.9 Hypotension, unspecified; R00.1 Bradycardia, unspecified; E86.0 Dehydration; N17.9 Acute kidney failure, unspecified; S00.03XA Contusion of scalp, initial encounter; W18.30XA Fall on same level, unspecified, initial encounter; Y92.003 Bedroom of unspecified non-institutional (private) residence as the place of occurrence of the external cause; G44.029 Chronic cluster headache, not intractable; I10 Essential (primary) hypertension; Z95.2 Presence of prosthetic heart valve; Z79.82 Long term (current) use of aspirin
CPT/HCPCS: 70450; 71045; 80053; 80320; 82550; 83690; 83735; 84484; 85025; 85610; 85730; 87797; 93005; 93306; 96361; 96372; 96374; 99284; 99291; G0378; J0461; J1650

== ENCOUNTER → 2024-08-15 10:02 | Outpatient (CLI) | payer OTHER, SELFPAY ==
[2024-05-27 04:59] VITALS: BMI 24.4
[2024-08-15 11:14] LABS: Alanine Aminotransferase 31 IU/L (<50); Albumin 4.6 g/dL (3.5-5.0); Albumin Globulin Ratio 1.6 (1.0-2.8); Alkaline Phosphatase 85 U/L (38-126); Aspartate Aminotransferase 40 IU/L (17-59); BUN Creatinine Ratio 13.2 (6-22); Bilirubin Total 0.9 mg/dL (0.2-1.3); Blood Urea Nitrogen 12 mg/dL (9-20); Calcium 10.2 mg/dL (8.4-10.2); Carbon Dioxide 28 mmol/L (22-32); Chloride 101 mmol/L (98-107); Cholesterol 187 mg/dL (140-199); Estimated Glomerular Filt Rate > 60 mL/min (>60); Globulin 2.9 g/dL (1.7-4.1); Glucose 86 mg/dL (80-110); HEMOLYSIS 16 (0-50); Potassium 3.9 mmol/L (3.4-5.1); Sodium 136 mmol/L (137-145); Total Protein 7.5 g/dL (6.3-8.2); Triglycerides 63 mg/dL (35-150)
[2024-08-15 11:18] LABS: High Sensitivity CRP - Cardiac 1.4 mg/L (1.0-3.0)
[2024-08-15 11:22] LABS: HDL Cholesterol 104 mg/dL (40-60); LDL Cholesterol Calculated 70 mg/dL (<100)
[2024-08-15 11:44] LABS: Prostate Specific Antigen Scrn 1.31 ng/mL (0.1-4.0)
== END ==
PROVIDERS: PCP Family Medicine; Referring Provider Family Medicine; Visit Provider Family Medicine
DX: L11.1 Transient acantholytic dermatosis [Grover] (principal); I10 Essential (primary) hypertension; R00.1 Bradycardia, unspecified; Z12.5 Encounter for screening for malignant neoplasm of prostate
CPT/HCPCS: 36415; 80053; 80061; 86140; G0103

== ENCOUNTER → 2024-11-24 06:41 | Outpatient (CLI) | payer OTHER, SELFPAY ==
[2024-05-27 04:59] VITALS: BMI 24.4
--- NOTE | 2024-11-24 06:42 | DI.ECHO.S_ITS ---
[facility] : : [address] : : [place] : : [id number] : : Phone: [phone] Echocardiogram Report + + :Name: SANAZ HO Study Date: 11/24/2024 Height: 69 in : :[facility] ReadingLocation: Weight: 160 lb : : Gender: Male BSA: 1.9 m2 : :: 1960 Age: 64 yrs BP: 126/75 mmHg: :Reason For Study: POST AORTIC VALVE REPLACEMENT : :Ordering Physician: TALAT HAILE Performed By: Jhoan Tony : :Referring: TALAT HAILE : + + Interpretation Summary 1. The left ventricular contractility is mildly compromised. Estimate ejection fraction is 40 to 45% with global hypokinesis. No LVH. Impaired relaxation. 2. The right ventricular contractility is normal. 3. All cardiac chambers are normal size. 4. Trace to mild mitral regurgitation. 5. Bioprosthetic valve noted in the aortic position with normal gradients. No insufficiency noted. 6. No obvious intracardiac shunts. 7. No obvious intracardiac masses nor thrombi. 8. No hemodynamically significant pericardial effusion. 9. Normal right-sided filling pressures. Conclusion: Mildly compromised left ventricular systolic function with normal functioning bioprosthetic aortic valve. When compared with previous echocardiogram, there is a significant decline in the left ventricular systolic function. Procedure: A two-dimensional transthoracic echocardiogram with color flow and Doppler was performed. The study quality was technically good. Comparison is made with the echocardiogram of 05/27/2024. The patient was in normal sinus rhythm during the exam. Left Ventricle: The left ventricle is normal in size. There is normal left ventricular wall thickness. There is no ventricular septal defect visualized. The ejection fraction is estimated to be 40-45%. There is mild global hypokinesis of the left ventricle. Diastolic parameters suggest a relaxation abnormality of the left ventricle, consistent with probable normal filling pressures. Right Ventricle: The right ventricle is normal in size and function. Atria: The left atrial size is normal. Right atrial size is normal. There is no Doppler evidence for an atrial septal defect. Mitral Valve: There is mild mitral annular calcification. The mitral valve leaflets appear normal. There is no evidence of stenosis, fluttering, or prolapse. There is trace mitral regurgitation. Aortic Valve: There is a bioprosthetic aortic valve. The peak aortic velocity is 1.6 m/sec. The aortic valve mean gradient is 5.0 mmHg. No aortic regurgitation is present. Tricuspid Valve: The tricuspid valve leaflets are thin and pliable. No tricuspid regurgitation. Pulmonic Valve: The pulmonic valve is normal in structure and function. There is trace pulmonic regurgitation. Great Vessels: The aortic root is normal size. The dimensions of the ascending aorta are normal. The pulmonary artery is normal size. The IVC is dilated (diameter is greater than 2.1 cm) yet it collapses greater than 50% with a sniff. This suggests a right atrial pressure of 8 mm Hg. Pericardium/ Pleura There is no pericardial effusion. There is no pleural effusion. MMode/2D Measurements & Calculations LVIDd: 4.3 cm LVOT diam: 1.8 cm LVIDs: 3.2 cm Ao root diam: 3.0 cm FS: 25.8 % asc Aorta Diam: 3.3 cm EPSS: 0.97 cm Ao Arch Diam (Prox Trans): 2.2 cm IVSd: 0.87 cm LVPWd: 0.79 cm LV elizabeth. diameter/BSA (cm/m^2): 2.3 LV sys. diameter/BSA (cm/m^2): 1.7 LA A2 area: 15.9 cm2 RA long axis: 4.0 cm LA A4 area: 11.1 cm2 RA area: 13.2 cm2 LA length (vol): 4.0 cm RA vol: 37.0 ml LA vol: 37.6 ml RA : 19.7 ml/m2 LA vol index: 20.0 ml/m2 IVC diam: 2.1 cm RVD1 (basal): 3.4 cm RVD2 (mid): 2.2 cm TAPSE: 1.9 cm Doppler Measurements & Calculations Ao V2 max: 159.4 cm/sec LVOT Max Ruben: 96.6 cm/sec Ao V2 mean: 102.2 cm/sec LV V1 max P.7 mmHg Ao max P.2 mmHg LV V1 VTI: 25.0 cm Ao mean P.0 mmHg RUBY(I,D): 1.9 cm2 Ao V2 VTI: 33.5 cm RUBY(V,D): 1.6 cm2 sev ratio: 0.75 RUBY indexed to BSA (cm^2/m^2): 1.0 MV E max ruben: 64.7 cm/sec PA V2 max: 61.8 cm/sec MV A max ruben: 74.8 cm/sec PA V2 mean: 42.4 cm/sec MV E/A: 0.87 PA mean P.80 mmHg Med Peak E' Ruben: 4.6 cm/sec E/E' med: 14.2 Lat Peak E' Ruben: 6.4 cm/sec E/E' lat: 10.1 E/e' average: 12.1 MV dec time: 0.26 sec SV(LVOT): 64.7 ml Reading Physician:VIKRAM
== END ==
PROVIDERS: PCP Family Medicine; Referring Provider Internal Medicine; Visit Provider Internal Medicine
DX: Z95.2 Presence of prosthetic heart valve (principal); I34.81 Nonrheumatic mitral (valve) annulus calcification
CPT/HCPCS: 93306

== ENCOUNTER → 2025-04-10 12:36 | Outpatient (CLI) | payer MEDICARE, OTHER, SELFPAY ==
[2024-05-27 04:59] VITALS: BMI 24.4
--- NOTE | 2025-04-10 12:41 | DI.NM.S_ITS ---
PROCEDURE: NM MALIK PERF SPECT R&S PHARM Rest and pharmacological stress myocardial perfusion SPECT with gated imaging and ejection fraction RADIOPHARMACEUTICAL: 27.3 mCi Tc-99m tetrafosmin IV at rest and 26.2 mCi Tc-99m tetrafosmin IV at peak effect of pharmacological stress. [id number] was performed. INDICATIONS: LBBB TECHNIQUE: Radiopharmaceutical was injected at peak stress test, and also at rest. SPECT images were obtained. SPECT myocardial perfusion images were displayed in short axis, horizontal long axis, and vertical long axis views. Gated images were reviewed using [employer] software. COMPARISON: None. CARDIAC STRESS: A pharmacologic stress test was performed under the supervision of an attending staff, using an infusion of regadenoson 0.4 mg IV. Hemodynamic data: There is normal blood pressure and heart rate response to pharmacologic stress. Symptoms: The patient denied anginal chest pain. EKG: No diagnostic changes of ischemia; no ectopy. FINDINGS: Raw data: There is poor myocardial uptake of radiotracer in the rest and stress supine images. There is evidence of patient motion artifact and diaphragmatic attenuation. Left ventricle function: Gated images demonstrate normal left ventricular wall thickening. No segmental wall motion abnormalities. No transient ischemic dilation; TID is 1.08 (normal less than 1.3). Left ventricle resting end diastolic volume is 84 mL. Left ventricle stress ejection fraction is 68%; normal range is above 45%. Myocardial perfusion: There is a large sized, moderate intensity fixed septal wall defect that mostly improves in prone imaging except there is a possible reversible component in the mid anteroseptal wall. IMPRESSION: Abnormal but poor quality study due to poor tracer uptake in the rest and stress supine images, patient motion and diaphragmatic attenuation. There is a large sized, moderate intensity fixed septal wall defect that mostly improves in prone imaging except there is a possible reversible component in the mid anteroseptal wall. Normal LV size and function. Dictated by: Paulina Kyle D.O. on 04/12/2025 at 16:33 Approved by: Paulina Kyle D.O. on 04/12/2025 at 16:38
== END ==
PROVIDERS: PCP Family Medicine; Referring Provider Internal Medicine; Visit Provider Internal Medicine
DX: I50.22 Chronic systolic (congestive) heart failure (principal); I44.7 Left bundle-branch block, unspecified; R94.39 Abnormal result of other cardiovascular function study
CPT/HCPCS: 78452; 93017; A9502; J2785

== ENCOUNTER 2025-06-28 16:36 | Emergency (ER) | payer MEDICARE, OTHER, SELFPAY ==
[2024-05-27 04:59] VITALS: BMI 24.4
--- NOTE | 2025-06-28 16:57 | DI.US.S_ITS ---
PROCEDURE: US PERIPH VENOUS UP EXTREM RT INDICATIONS: concern dvt TECHNIQUE: Real-time imaging, as well as color and pulse Doppler interrogation, was performed of the upper extremity deep veins from the inferior neck to the antecubital fossa. COMPARISON: None. FINDINGS: The internal jugular vein, visualized portions of the subclavian vein, axillary, and brachial veins are free of intraluminal thrombus. Where physically possible, the veins are normally compressible. Color and pulse Doppler demonstrate normal intraluminal flow, with expected phasicity and pulsatility. Additional scanning of the cephalic and basilic veins of the superficial system demonstrates normal compressibility, without thrombus. IMPRESSION: No findings of upper extremity deep venous thrombosis can be seen. Dictated by: Ras Zheng M.D. on 06/28/2025 at 16:48 Approved by: Ras Zheng M.D. on 06/28/2025 at 16:48
--- NOTE | 2025-06-28 17:03 | ED.UPPEXIN ---
HPI - Extremity Injury (Upper) <Pinky White PA-C - Last Filed: 06/28/25 18:56> General Chief Complaint: Extremity Problem,Nontraumatic Stated Complaint: swelling right arm Time Seen by Provider: 06/28/25 16:57 History of Present Illness HPI narrative: Mr. Spicer is a very pleasant 65-year-old gentleman with a past medical history of left bundle branch block, hypertension, osteoarthritis who presents to the emergency department for right arm pain, bruising, swelling x2 weeks after having a CTA w/ IV contrast in the right forearm 06/15/25. Patient states he had no coronary artery blockages however about 3 days after the procedure he developed bruising some swelling and pain on the right forearm. He is here for concern of blood clot. Denies chest pain, shortness of breath, fevers, chills, numbness, tingling, weakness. Related Data Home Medications ?Medication ?Instructions ?Recorded ?Confirmed aspirin 81 mg tablet 81 mg PO DAILY 05/27/24 02/06/25 cholecalciferol (vitamin D3) 100 100 mcg PO DAILY 05/27/24 02/06/25 mcg (4,000 unit) tablet eyelid cleanser combination 3 ea topical 05/31/24 02/06/25 (OcuSoft Lid Scrub Plus topical foam) metoprolol succinate 25 mg 25 mg PO DAILY Heart function 02/06/25 02/06/25 tablet,extended release 24 hr Previous Rx's ?Medication ?Instructions ?Recorded losartan 50 mg tablet 50 mg PO BID #180 tabs 05/31/24 Oxygen #1 ea 10/04/24 hydrochlorothiazide 12.5 mg tablet 12.5 mg PO DAILY #90 tabs 01/18/25 ipratropium bromide 21 mcg (0.03 2 spray intranasal BID PRN allergy 02/06/25 %) nasal spray symptoms #30 mL gabapentin 300 mg capsule 300 mg PO BEDTIME #90 caps 02/28/25 COVID vaccine [id number] (12y 0.5 ml IM ONCE #0.5 mL 06/06/25 up)-adj(PF) 5 mcg/0.5 mL IM syringe (EUA) Allergies Allergy/AdvReac Type Severity Reaction Status Date / Time adhesive Allergy Intermediate Rash Verified 06/28/25 17:16 chlorhexidine (From Allergy Redness of Verified 06/28/25 17:16 Hibiclens) Skin morphine AdvReac Difficulty Verified 06/28/25 17:16 Breathing Review of Systems <Pinky White PA-C - Last Filed: 06/28/25 18:56> Review of Systems ROS Unobtainable: All systems reviewed & are unremarkable except as noted in HPI and below Patient History <Pinky White PA-C - Last Filed: 06/28/25 18:56> Medical History Macular pucker, right eye Retinal tear (~2022) Bravo's disease (~2014) Rosacea Acne (~1970) Restless leg syndrome (~2014) Headache (~1979) Shoulder pain (~2012) Mumps Chicken pox Partial blindness LBBB (left bundle branch block) (~2018) Skin cancer (~2016) Cluster headache syndrome Essential hypertension (~1975) Restless upper extremity Bradycardia LIBIA (acute kidney injury) (~05/2024) Syncope (~05/2024) Surgical History [place] teeth removed (10/05/77) Anesthesia Undescended testicle of both sides History of shoulder surgery (~2012) History of eye surgery (~1962) H/O aortic valve replacement (~11/2018) Family History Father Cancer Mother Diabetes mellitus Sister Cardiac arrest Grandfather History of heart disease Grandmother Alzheimer's disease Dementia Social History marital status: details: Parents are number of children: 0 household members: spouse lives independently: No caregiver/support person: No housing: house pets and animals: No education level: college occupational status: unemployed current occupational exposures/hazards: No 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 special kevin needs: No travel history: over 6 months ago leisure activities: exercise, art, music, games, reading and other other: 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 seatbelt use: always water heater temp set < 120 deg: No working smoke detector in home: Yes fire extinguisher in home: Yes carbon monox detector in home: Yes firearms in home: No do you feel safe at home: Yes Smoking Status: Never smoker second hand exposure: No alcohol intake: current substance use type: does not use during the past year weight has: remained stable well-balanced diet: daily or most days daily servings fruits/ve-4 caffeine: Yes eating out: 1-3 times/week Type(s) of exercise: walking and occasional exercise frequency: daily duration: 15-30 minutes/day alcohol intake frequency: 0-2 drinks per day Alcohol type: beer Exam <Pinky White PA-C - Last Filed: 06/28/25 18:56> Narrative Exam Narrative: GENERAL: 65 year old patient appears stated age. Well-developed patient, in no acute distress. HEAD: Atraumatic. Normocephalic. NECK: Trachea midline. Cervical ROM intact. CARDIOVASCULAR: Regular rate RESPIRATORY: ?Nonlabored respirations. ?Speaking in clear, full sentences. EXTREMITIES: 2+ radial pulses BL. On the dorsal aspect of the distal right forearm there is proximally 4 cm linear area of bruising along a vessel with tenderness and mild edema in this area. No gross edema of the right upper extremity, no erythema, increased warmth, no difficulty with range of motion of the wrist or hand. NEURO: AOx3. ?Clear speech. ?Moves all 4 extremities appropriately. SKIN: No rash or erythema of visible areas. Right forearm bruising described above. Initial Vital Signs Initial Vital Signs: Vital Signs Temperature 98 F 06/28/25 17:15 Pulse Rate 77 06/28/25 17:15 Respiratory Rate 16 06/28/25 17:15 Blood Pressure 143/71 H 06/28/25 17:15 Pulse Oximetry 98 06/28/25 17:15 Oxygen Delivery Method Room Air 06/28/25 17:15 <Aakash Boudreaux MD - Last Filed: 06/29/25 08:53> Initial Vital Signs Initial Vital Signs: Vital Signs Temperature 98 F 06/28/25 17:15 Pulse Rate 77 06/28/25 17:15 Respiratory Rate 16 06/28/25 17:15 Blood Pressure 143/71 H 06/28/25 17:15 Pulse Oximetry 98 06/28/25 17:15 Oxygen Delivery Method Room Air 06/28/25 17:15 Course <GRETA Diaz Last Filed: 06/28/25 18:56> Orders Ordered: ED Orders 06/28/25 16:57 US periph venous up extrem rt Stat Vital Signs Vital signs: Vital Signs - 8 hr 06/28/25 17:15 Temperature 98 F Pulse Rate 77 Respiratory Rate 16 Blood Pressure 143/71 H Pulse Oximetry 98 Oxygen Delivery Method Room Air <Aakash Boudreaux MD - Last Filed: 06/29/25 08:53> Orders Ordered: ED Orders 06/28/25 16:57 US periph venous up extrem rt Stat Vital Signs Vital signs: Vital Signs - 8 hr 06/28/25 17:15 Temperature 98 F Pulse Rate 77 Respiratory Rate 16 Blood Pressure 143/71 H Pulse Oximetry 98 Oxygen Delivery Method Room Air MDM - Extremity Injury (Upper) <Pinky White PA-C - Last Filed: 06/28/25 18:56> Medical Records Attestation: I reviewed the patient's medical records. Imaging Data RUE Vascular US: Radiologist's Impression: PROCEDURE: US PERIPH VENOUS UP EXTREM RT INDICATIONS: concern dvt TECHNIQUE: Real-time imaging, as well as color and pulse Doppler interrogation, was performed of the upper extremity deep veins from the inferior neck to the antecubital fossa. COMPARISON: None. FINDINGS: The internal jugular vein, visualized portions of the subclavian vein, axillary, and brachial veins are free of intraluminal thrombus. Where physically possible, the veins are normally compressible. Color and pulse Doppler demonstrate normal intraluminal flow, with expected phasicity and pulsatility. Additional scanning of the cephalic and basilic veins of the superficial system demonstrates normal compressibility, without thrombus. IMPRESSION: No findings of upper extremity deep venous thrombosis can be seen. Dictated by: Ras Zheng M.D. on 06/28/2025 at 16:48 Approved by: Ras Zheng M.D. on 06/28/2025 at 16:48 [facility] Narrative Medical decision making narrative: 65-year-old gentleman with a past medical history of left bundle branch block, hypertension, osteoarthritis who presents to the emergency department for right arm pain, bruising, swelling x2 weeks after having a CTA w/ IV contrast in the right forearm 06/15/25. Differential diagnosis includes but is not limited to DVT, SVT, superficial thrombophlebitis, hematoma etc. On exam patient is in no acute distress, nontoxic appearing. He has linear area of bruising on the right forearm where prior IV line was placed. Right upper extremities neurovascularly intact with strong pulses. We will obtain RUE venous ultrasound. Patient is not anticoagulated, no history of VTE. Ultrasound reveals no findings of upper extremity DVT. Recommended supportive care for ecchymosis/hematoma with warm compresses. Advised patient to follow up with PCP, discussed strict ER return precautions. Patient is verbalized understanding of all information happy with the plan. He is stable for discharge home. Discharge Plan Departure Patient Disposition: Home Clinical Impression: Edema of right forearm Instructions: DI for Hematoma (Bruise) Activity Restrictions/Additional Instructions: Dear Mr. Spicer, Thank you for coming to the emergency department. Today you were evaluated for bruising and swelling of the right forearm after having a CT angiogram. Your right arm ultrasound revealed no blood clot. You may apply warm compresses/heat therapy to the right forearm to help dissipate the bruising. Please follow up with your primary care doctor, return to the emergency department if you develop increased swelling of the arm, severe pain, redness, fevers or any other concerns. Please follow up with your primary care doctor within the next 2-3 days for ER follow-up. (If you do not have a PCP you can call [phone]. ?to schedule an appointment with an [facility] Primary Care Provider) IF YOU DEVELOP ANY NEW OR WORSENING SYMPTOMS, RETURN TO THE ER! Please read the attached instructions, they highlight more specific treatments and interventions for you at home. Thank you for letting me participate in your care, Pinky White PA-C Prescriptions: No Action hydrochlorothiazide 12.5 mg tablet 12.5 mg PO DAILY Qty: 90 1RF gabapentin 300 mg capsule 300 mg PO BEDTIME Qty: 90 3RF COVID vac 24-25(12y up)-adj-PF 5 mcg/0.5 mL syringe 0.5 ml IM ONCE Qty: 0.5 0RF Rx Instructions: as a single dose; at least 2 months after previous dose OcuSoft Lid Scrub Plus Foam topical losartan 50 mg tablet 50 mg PO BID Qty: 180 3RF metoprolol succinate 25 mg tablet extended release 24 hr 25 mg PO DAILY Patient Comments: Prescribed to improve heart muscle weakness ipratropium bromide 21 mcg (0.03 %) spray,non-aerosol 2 spray intranasal BID PRN (Reason: allergy symptoms) Qty: 30 5RF Rx Instructions: administer into each nostril (DME) Oxygen See Rx Instructions .Route .MEDSUPPLY Qty: 1 0RF Rx Instructions: 12-15L/min O2 with non-rebreather mask for at least 15 min as needed. aspirin 81 mg Tablet 81 mg PO DAILY cholecalciferol (vitamin D3) 100 mcg (4,000 unit) Tablet 100 mcg PO DAILY Referrals: Madonna Fernandez DO [Primary Care Provider, Medical] Stand Alone Forms: Patient Portal/API ED Sign-out <Aakash Boudreaux MD - Last Filed: 06/29/25 08:53> Cosign ED Attending Cosignature Attestation: was immediately available in the department for consultation. ?This documentation has been reviewed and I agree with assessment and plan. Supervised by Aakash Boudreaux MD
[2025-06-28 17:15] VITALS: BP 143/71; PULSE 77; RESP 16; TEMP 36.6; O2SAT 98; BMI 24.7
== END 2025-06-28 18:58 | disposition home or self-care (01) ==
PROVIDERS: Emergency Provider Physician Assistant; PCP Family Medicine
DX: R60.0 Localized edema (principal)
CPT/HCPCS: 93971; 99281; 99283

== ENCOUNTER → 2025-07-21 10:03 | Outpatient (CLI) | payer MEDICARE, OTHER, SELFPAY ==
[2024-05-27 04:59] VITALS: BMI 24.4
[2025-07-21 11:27] LABS: Hematocrit 43.8 % (41-53); Hemoglobin 14.9 g/dL (13.5-17.5); Mean Corpuscular HGB Conc 34.0 % (30-36); Mean Corpuscular Hemoglobin 33.8 PG (26-34); Mean Corpuscular Volume 99.5 fL (80-100); Platelet Count 202 X10^3/uL (150-400)
[2025-07-21 12:03] LABS: Alanine Aminotransferase 32 IU/L (<50); Albumin 4.6 g/dL (3.5-5.0); Albumin Globulin Ratio 1.7 (1.0-2.8); Alkaline Phosphatase 84 U/L (38-126); Blood Urea Nitrogen 23 mg/dL (9-20); Calcium 10.0 mg/dL (8.4-10.2); Carbon Dioxide 26 mmol/L (22-32); Chloride 99 mmol/L (98-107); Cholesterol 172 mg/dL (140-199); Estimated Glomerular Filt Rate > 60 mL/min (>60); Globulin 2.7 g/dL (1.7-4.1); Glucose 76 mg/dL (70-99); HDL Cholesterol 82 mg/dL (40-60); HEMOLYSIS < 15 (0-50); Potassium 3.9 mmol/L (3.4-5.1); Sodium 137 mmol/L (137-145); Total Protein 7.3 g/dL (6.3-8.2); Triglycerides 107 mg/dL (35-150)
[2025-07-22 04:08] LABS: CRP, High Sensitivity 1.72 mg/L (0.00-3.00)
== END ==
PROVIDERS: PCP Family Medicine; Referring Provider Family Medicine; Visit Provider Family Medicine
DX: I10 Essential (primary) hypertension (principal); Z12.5 Encounter for screening for malignant neoplasm of prostate; M15.9 Polyosteoarthritis, unspecified; R00.1 Bradycardia, unspecified; L11.1 Transient acantholytic dermatosis [Grover]
CPT/HCPCS: 36415; 80053; 80061; 85027; 86140; G0103